=== PATIENT | male | born 1985 | race Caucasian/White ===

== ENCOUNTER 2020-10-10 18:38 | Emergency (ER) | payer SELFPAY ==
[~2020-10-10] VITALS: Ht 180.3 cm; Wt 70.4 kg
[2020-10-10 19:50] VITALS: BP 140/63
[2020-10-10] MEDS ORDERED: IBUP-1060 PO (20:21)
[2020-10-10] MEDS ORDERED: PENI500T PO (20:21)
--- NOTE | 2020-10-10 20:21 | PHYS DOC ---
General Adult EDM: Chief Complaint: SORE THROAT HPI: HPI: Patient is a 35 year old male patient presents with right-sided jaw pain. States that he had some dental work done approximately 3 to 4 weeks ago, since that time he had some discomfort continuing to his right posterior jaw. States the place where his pain hurts most is right behind where his last extraction was. States he had followed up with the dentist, had some x-ray done, and was told that there was nothing wrong. However with his discomfort continued he came here because he did not know what else to do. States pain has gotten worse, states he has not noticed any bad taste in his mouth, not noticed any purulence, has not had any loss of taste. States he is able to open and close his jaw as normal, denies any clicking with opening or closing jaw. Denies sore throat. Denies change in voice. States discomfort is only in his right posterior jaw. States he does however spread to the left side at night. He has tried some Tylenol ibuprofen this, however it has not helped significantly. (SARA FLEMING APRN) Review of Systems: Review of Systems: Constitutional: Denies fever or chills. [] Eyes: Denies change in visual acuity. [] HENT: Denies nasal congestion or sore throat. Reports right jaw pain, reports recent dental work denies change in taste, denies lack of mobility and jaw [] Respiratory: Denies cough or shortness of breath. [] Cardiovascular: Denies chest pain or edema. [] GI: Denies abdominal pain, nausea, vomiting, bloody stools or diarrhea. [] : Denies dysuria. [] Musculoskeletal: Denies back pain or joint pain. [] Integument: Denies rash. [] Neurologic: Denies headache, focal weakness or sensory changes. [] Endocrine: Denies polyuria or polydipsia. [] Lymphatic: Denies swollen glands. [] Psychiatric: Denies depression or anxiety. [] (SARA FLEMING APRN) Heart Score: Risk Factors: Risk Factors: DM, Current or recent (<one month) smoker, HTN, HLP, family hi story of CAD, obesity. Risk Scores: Score 0 - 3: 2.5% MACE over next 6 weeks - Discharge Home Score 4 - 6: 20.3% MACE over next 6 weeks - Admit for Clinical Observation Score 7 - 10: 72.7% MACE over next 6 weeks - Early Invasive Strategies (SARA FLEMING APRN) Allergies: Allergies: Allergies Coded Allergies Type Severity Reaction Last Updated Verified No Known Drug Allergies 10/10/20 No (SARA FLEMING APRN) Physical Exam: PE: Constitutional: Well developed, well nourished, no acute distress, non-toxic appearance. [] HENT: Normocephalic, atraumatic, bilateral external ears normal, oropharynx moist, no oral exudates, nose normal. Tonsils 0+. Patient noted to be missing teeth 29 3031. Tooth #32 appears dark, loose, discolored, with some tenderness on manipulation. No tenderness on palpation of gums, no swelling noted, no abscess noted inside oropharynx. Jaw mobile, without click. [] Neck: Normal range of motion, no tenderness, supple, no stridor. [] Cardiovascular:Heart rate regular rhythm, no murmur [] Lungs & Thorax: Bilateral breath sounds clear to auscultation [] Skin: Warm, dry, no erythema, no rash. [] Extremities: No tenderness, no cyanosis, no clubbing, ROM intact, no edema. [] Neurologic: Alert and oriented X 3, normal motor function, normal sensory function, no focal deficits noted. [] Psychologic: Affect normal, judgement normal, mood normal. [] (SARA FLEMING APRN) EKG: EKG: [] (SARA FLEMING APRN) Radiology/Procedures: Radiology/Procedures: [] (SARA FLEMING APRN) Course & Med Decision Making: Course & Med Decision Making Pertinent Labs and Imaging studies reviewed. (See chart for details) [] Reviewed findings with patient, with concern for developing dental abscess to posterior molar, near site where his dental extraction was recently. Cannot rule out this being a dry socket with discomfort, however patient has followed up with dentist and has had no findings as such with him. Will provide patient short course of antibiotics with recommendation to continue following up with dentist. Will provide patient with prescription for ibuprofen to limit his risk for taking too much ibuprofen as he had previously. Patient no further questions or concerns, and agree with this plan of care (SARA FLEMING APRN) Course & Med Decision Making I have reviewed the PA/[employer] GRINDER's note and Plan of Care. I was available for consultation as needed during the patient's visit in the emergency department. I agree with the clinical impression, plans and disposition. (VANESSA ESPINOSA MD) Ross Disclaimer: Ross Disclaimer: This electronic medical record was generated, in whole or in part, using a voice recognition dictation system. (SARA FLEMING APRN) Departure Departure Impression: Primary Impression: Dentalgia Additional Impression: Jaw pain, non-TMJ Disposition: HOME SELF CARE/HOMELESS Condition: GOOD Referrals: NO PCP (PCP) Patient Instructions: Dental Abscess, Dental Extraction, Care After Additional Instructions: As discussed, take the ibuprofen as prescribed. Take the antibiotics as prescribed follow-up with your primary care provider or your dentist in the next week to determine if you have any improvement in your symptoms and to reevaluate your symptoms Scripts Ibuprofen (IBUPROFEN) 800 Mg Tablet 800 MG PO PRN Q8HRS PRN for PAIN for 5 Days, #15 TAB Prov: SARA FLEMING APRN 10/10/20 Penicillin V Potassium (PENICILLIN V POTASSIUM) 500 Mg Tablet 500 MG PO TID for 7 Days, #21 TAB 0 Refills Prov: SARA FLEMING APRN 10/10/20 SARA FLEMING APRN Oct 10, 2020 20:21 VANESSA ESPINOSA MD Oct 11, 2020 01:21
[2020-10-10] MEDS ORDERED: PENICILLIN V K 250 MG TABLET. PO ONE (20:45)
[2020-10-11] MEDS ORDERED: HYDR-3164 PO (01:15)
== END 2020-10-10 20:35 | disposition home or self-care (01) ==
LOC: ER 18:38
DX: K08.89 Other specified disorders of teeth and supporting structures (principal); R68.84 Jaw pain
CPT/HCPCS: 99283

== ENCOUNTER 2020-10-11 00:39 | Emergency (ER) | payer SELFPAY ==
[~2020-10-11] VITALS: Ht 165.1 cm; Wt 70.4 kg
[~2020-10-11 00:39] MED LIST: IBUP-1060 PO; PENI500T PO
[2020-10-11 01:00] VITALS: BP 166/73
[2020-10-11] MEDS ORDERED: HYDR-3164 PO (01:15)
--- NOTE | 2020-10-11 01:15 | PHYS DOC ---
Past Medical History Past Medical History: Other Additional Past Medical Histor: DENTAL Past Surgical History: No Surgical History Smoking Status: Current Every Day Smoker Alcohol Use: Rarely General Adult EDM: Chief Complaint: DENTAL PROBLEM HPI: HPI: Patient is a 35 year old male who arrives with a chief complaint of 10 out of 10 right-sided jaw pain. Patient had dental extraction a few weeks ago and the pain has been there since then but progressively worse over the last 24 hours. Patient seen his dentist in follow-up who states nothing is wrong. Patient denies any fever. Patient states pain is worse with palpation and with eating. Patient denies any other complaints. Patient was seen here earlier today and put on antibiotics. Patient states the pain is unrelenting and that is why he returned. Review of Systems: Review of Systems: Constitutional: Denies fever or chills. [] Eyes: Denies change in visual acuity. [] HENT: Denies nasal congestion or sore throat. [] Patient complains of right- sided jaw pain Respiratory: Denies cough or shortness of breath. [] Cardiovascular: Denies chest pain or edema. [] GI: Denies abdominal pain, nausea, vomiting, bloody stools or diarrhea. [] : Denies dysuria. [] Musculoskeletal: Denies back pain or joint pain. [] Integument: Denies rash. [] Neurologic: Denies headache, focal weakness or sensory changes. [] Endocrine: Denies polyuria or polydipsia. [] Lymphatic: Denies swollen glands. [] Psychiatric: Denies depression or anxiety. [] Heart Score: Risk Factors: Risk Factors: DM, Current or recent (<one month) smoker, HTN, HLP, family history of CAD, obesity. Risk Scores: Score 0 - 3: 2.5% MACE over next 6 weeks - Discharge Home Score 4 - 6: 20.3% MACE over next 6 weeks - Admit for Clinical Observation Score 7 - 10: 72.7% MACE over next 6 weeks - Early Invasive Strategies Allergies: Allergies: Allergies Coded Allergies Type Severity Reaction Last Updated Verified No Known Drug Allergies 10/10/20 No Physical Exam: PE: Constitutional: Well developed, well nourished, appears to be in pain, non-toxic appearance. [] HENT: Normocephalic, atraumatic, bilateral external ears normal, oropharynx moist, no oral exudates, nose normal. [] Floor the mouth is soft there is no evidence of Maurice angina. There is mild swelling along the right maxillary molar area. No obvious dry socket. Eyes: PERRLA, EOMI, conjunctiva normal, no discharge. [] Neck: Normal range of motion, no tenderness, supple, no stridor. [] Shotty lymphadenopathy Cardiovascular:Heart rate regular rhythm, no murmur [] Lungs & Thorax: Bilateral breath sounds clear to auscultation [] Abdomen: Bowel sounds normal, soft, no tenderness, no masses, no pulsatile masses. [] Skin: Warm, dry, no erythema, no rash. [] Back: No tenderness, no CVA tenderness. [] Extremities: No tenderness, no cyanosis, no clubbing, ROM intact, no edema. [] Neurologic: Alert and oriented X 3, normal motor function, normal sensory function, no focal deficits noted. [] Psychologic: Affect normal, judgement normal, mood normal. [] EKG: EKG: [] Radiology/Procedures: Radiology/Procedures: [] Course & Med Decision Making: Course & Med Decision Making Pertinent Labs and Imaging studies reviewed. (See chart for details) [] 35-year-old male presents with dental pain following a dental extraction. There is no drainable abscess. Patient started on antibiotics. Patient will give some strong pain and then need to follow-up with his dentist. Ross Disclaimer: Ross Disclaimer: This electronic medical record was generated, in whole or in part, using a voice recognition dictation system. Departure Departure Impression: Primary Impression: Pain, dental Additional Impression: Oral pain Disposition: 01 DC HOME SELF CARE/HOMELESS Condition: STABLE Referrals: NO PCP (PCP) [facility] [address] [place], [place] [phone] (kids only) [facility] [address], [place] [phone] (kids onl Patient Instructions: Dental Pain Additional Instructions: EMERGENCY DEPARTMENT GENERAL DISCHARGE INSTRUCTIONS THANK YOU for coming to [facility] Emergency Department (ED) today and trusting us with your care. We trust that you had a positive experience in our Emergency Department. If you wish to speak to the department Management you can contact the liquor department manager at . YOUR FOLLOW UP INSTRUCTIONS ARE FOLLOWS: Do you have a private doctor? If you do not have a private doctor, please ask for a resource list of physicians or clinics that may be able to assist you with follow up care. The Emergency Physician has interpreted your x-rays. The X-ray specialist will also review them. If there is a change in the findings you will be notified in 48 hours when at all possible. A lab test or lab culture may have been done, your results will be reviewed and you will be notified if you need a change in treatment. ADDITIONAL INSTRUCTIONS AND INFORMATION Your care today has been supervised by a physician who is specially trained in emergency care. Many problems require more than one evaluation for a complete diagnosis and treatment. We recommend that you schedule your follow up appointment as recommended to ensure complete treatment of your illness or injury. If you are unable to obtain follow up care and continue to have a problem, or if your condition worsens we recommend that you return to the ED. We are not able to safely determine your condition over the phone nor are we able to give sound medical advice over the phone. For these safety reasons, if you call for medical advice we will ask you to come to the ED for further evaluation If you have any questions regarding these discharge instructions please call the ED at . SAFETY INFORMATION In the interest of safety, wellness, and injury prevention; we encourage you to wear your seatbelt, if you smoke; quit smoking, and we encourage your family to use protective helmet for bicycling and other sporting events that present an increased risk for head injury. IF YOUR SYMPTOMS WORSEN OR NEW SYMPTOMS DEVELOP, OR YOU HAVE CONCERNS ABOUT YOUR CONDITION; OR IF YOUR CONDITION WORSENS WHILE YOU ARE WAITING FOR YOUR FOLLOW UP APPOINTMENT; EITHER CONTACT YOUR PRIMARY CARE DOCTOR, THE PHYSICIAN WHOSE NAME AND NUMBER YOU WERE GIVEN, OR RETURN TO THE ED IMMEDIATELY. Scripts Hydrocodone/Apap 5-325 (NORCO 5-325 TABLET) 1 Each Tablet 1-2 EACH PO PRN Q6HRS PRN for PAIN, #15 as needed for pain Prov: VANESSA ESPINOSA MD 10/11/20 VANESSA ESPINOSA MD Oct 11, 2020 01:15
[2020-10-11] MEDS: HYDROmorphone 2 MG/ML VIAL IM ONE (01:21)
== END 2020-10-11 01:25 | disposition home or self-care (01) ==
LOC: ER 00:39
DX: K08.89 Other specified disorders of teeth and supporting structures (principal); R68.84 Jaw pain; K13.79 Other lesions of oral mucosa; F17.200 Nicotine dependence, unspecified, uncomplicated
CPT/HCPCS: 96372; 99283; J1170

== ENCOUNTER 2021-08-08 20:02 | Emergency (ER) | payer SELFPAY ==
[~2021-08-08] VITALS: Ht 180.3 cm; Wt 68.0 kg
[~2021-08-08 20:02] MED LIST changes: +HYDR-3164 PO
[2021-08-08] MEDS ORDERED: oxyCODONE IR 5 MG TABLET PO ONE (21:00)
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
[2021-08-08 21:36] VITALS: BP 142/82
== END 2021-08-08 21:50 | disposition home or self-care (01) ==
LOC: ER 20:02
DX: S00.33XA Contusion of nose, initial encounter (principal); F17.200 Nicotine dependence, unspecified, uncomplicated; Y08.89XA Assault by other specified means, initial encounter; Y93.89 Activity, other specified; Y92.89 Other specified places as the place of occurrence of the external cause; Y99.8 Other external cause status
CPT/HCPCS: 99283

== ENCOUNTER 2021-10-29 10:44 | Emergency (ER) | payer SELFPAY ==
[~2021-10-29] VITALS: Ht 180.3 cm; Wt 64.5 kg
--- NOTE | 2021-10-29 13:57 | PHYS DOC ---
Past Medical History Past Medical History: Other Additional Past Medical Histor: DENTAL Past Surgical History: Other Additional Past Surgical Histo: FACIAL RECONSTRUCTION JUL 2021 Smoking Status: Current Every Day Smoker Alcohol Use: Rarely General Adult EDM: Chief Complaint: Congestion HPI: HPI: Patient is a 36-year-old male that presents today because he needs a Covid test. 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 Patient denies chest pain, shortness of air, body aches, or fever or chills. Patient does smoke Review of Systems: Review of Systems: Constitutional: Denies fever or chills. [] Eyes: Denies change in visual acuity. [] HENT: nasal congestion; denies sore throat. [] Respiratory: cough; Denies shortness of breath. [] Cardiovascular: Denies chest pain or edema. [] GI: Denies abdominal pain, nausea, vomiting, bloody stools or diarrhea. [] : Denies dysuria. [] Musculoskeletal: Denies back pain or joint pain. [] Integument: Denies rash. [] Neurologic: Denies headache, focal weakness or sensory changes. [] Endocrine: Denies polyuria or polydipsia. [] Lymphatic: Denies swollen glands. [] Psychiatric: Denies depression or anxiety. [] Heart Score: C/O Chest Pain: N/A Risk Factors: Risk Factors: DM, Current or recent (<one month) smoker, HTN, HLP, family history of CAD, obesity. Risk Scores: Score 0 - 3: 2.5% MACE over next 6 weeks - Discharge Home Score 4 - 6: 20.3% MACE over next 6 weeks - Admit for Clinical Observation Score 7 - 10: 72.7% MACE over next 6 weeks - Early Invasive Strategies Allergies: Allergies: Allergies Coded Allergies Type Severity Reaction Last Updated Verified No Known Drug Allergies 10/10/20 No Physical Exam: PE: Constitutional: Well developed, well nourished, no acute distress, non-toxic appearance. [] HENT: Normocephalic, atraumatic, bilateral external ears normal, oropharynx moist, no oral exudates, nose normal. [] Eyes: PERRLA, EOMI, conjunctiva normal, no discharge. [] Neck: Normal range of motion, no tenderness, supple, no stridor. [] Cardiovascular:Heart rate regular rhythm, no murmur [] Lungs & Thorax: Bilateral breath sounds clear to auscultation [] Abdomen: Bowel sounds normal, soft, no tenderness, no masses, no pulsatile masses. [] Skin: Warm, dry, no erythema, no rash. [] Back: No tenderness, no CVA tenderness. [] Extremities: No tenderness, no cyanosis, no clubbing, ROM intact, no edema. [] Neurologic: Alert and oriented X 3, normal motor function, normal sensory function, no focal deficits noted. [] Psychologic: Affect normal, judgement normal, mood normal. [] Current Patient Data: Labs: Laboratory Tests Test 10/29/21 13:59 SARS-CoV-2 Antigen (Rapid) Positive Vital Signs: Vital Signs Date Time Temp Pulse Resp B/P (MAP) Pulse Ox O2 Delivery O2 Flow Rate FiO2 10/29/21 14:36 58 16 125/82 (96) 98 Room Air 10/29/21 13:25 98.4 77 16 129/84 (99) 100 Room Air 98.4 EKG: EKG: [] Radiology/Procedures: Radiology/Procedures: [] Course & Med Decision Making: Course & Med Decision Making Pertinent Labs and Imaging studies reviewed. (See chart for details) Received call from lab patient is positive for COVID-19. We will give patient quarantine instructions starting from the first day of his symptoms. [place] Disclaimer: [place] Disclaimer: This electronic medical record was generated, in whole or in part, using a voice recognition dictation system. Departure Departure Impression: Primary Impression: COVID-19 Disposition: 01 HOME / SELF CARE / HOMELESS Condition: STABLE Referrals: NO PCP (PCP) Additional Instructions: You have been tested for or diagnosed with COVID-19. It is an infection caused by a new type of coronavirus. COVID-19 will cause cold-like or mild flu symptoms in most. It can cause more severe symptoms like problems breathing in some. There is no treatment for COVID-19. The body will clear the infection over time. Self-care will help to ease discomfort. Steps to Take: Self-Care Rest as needed. Healthy habits may help you feel better. Steps include: Choose healthy foods including fruits and vegetables. Drink water throughout the day. Get plenty of sleep each night. If you smoke, try to quit. It may ease breathing. Avoid alcohol. Keep Others Healthy The virus can spread to others. Droplets are released every time you sneeze or cough. The droplets can get into the mouth, nose, or eyes of people near you and lead to infection. To lower the chances of spreading COVID-19 to others: Stay at home until your doctor has said it is safe to leave. If you tested positive this will mean staying isolated until both of the following are true: At least 14 days have passed since the start of illness. You are free of fever for at least 72 hours without the use of medicine. During this time: - Avoid public areas, events, or transportation. Do not return to work or school until your doctor has said it is safe to do so. - Call ahead if you need to go to a medical center. Let them know you may have COVID-19. It will help them guide you where to go. They may also ask you to wear a facemask when you come to the office. - If you call for emergency medical services, let them know you may have COVID- 19. While at home: - Try to avoid close contact with others. Stay about 6 feet away. - If possible, spend most of your time in a separate room from others. - Use a face mask if you will be in close contact with others such as sharing a room or vehicle. - Have someone wipe down common surfaces in the home. Use household apparel patternmaker every day on areas like doorknobs, counters, or sinks. - Cough or sneeze into a tissue. Throw the tissue away right after use. If a tissue is not available, cough or sneeze into your elbow. - Wash your hands often. Wash them after sneezing or coughing. Use soap and water and wash for at least 20 seconds. Alcohol based hand grounds cleaner can be used if soap and water is not available. - Do not prepare food for others. Avoid sharing personal items like forks, spoons, or toothbrushes. - Avoid close contact with pets while you are sick. There is no evidence of the virus passing to pets. This is a safety step until more is known about this virus. Isolation can be frustrating. Social interaction can help. Keep in touch with friends and family through phone and tech options. You can still interact with others in your home, just keep a safe distance of about 6 feet. Follow-up: Your doctors office will check in with you to see if there are any changes in your health. You may be asked to keep track of symptoms to share with them. They will also let you know when you are clear to be in public again. Problems to Look Out For: Contact your doctor if your recovery is not going as you expect. Get emergency care if you have problems such as: - Trouble breathing - Nonstop chest pain or pressure - Changes in awareness, confusion, or problems waking - Lips or face have bluish color - Worsening of symptoms If you think you have an emergency, call for emergency medical services right away. As taken from [facility] LIZETH OBANDO APRN Oct 29, 2021 13:57
[2021-10-29 14:36] VITALS: BP 125/82
== END 2021-10-29 14:36 | disposition home or self-care (01) ==
LOC: ER 10:44
DX: U07.1 COVID-19 (principal); F17.200 Nicotine dependence, unspecified, uncomplicated
CPT/HCPCS: 87426; 99283

== ENCOUNTER 2021-11-16 21:45 | Emergency (ER) | payer SELFPAY ==
[~2021-11-16] VITALS: Ht 177.8 cm; Wt 77.3 kg
--- NOTE | 2021-11-16 22:39 | PHYS DOC ---
Past Medical History Past Medical History: Other Additional Past Medical Histor: DENTAL Past Surgical History: Other Additional Past Surgical Histo: left facial reconstructive surgery 07/2021 Smoking Status: Never Smoker Alcohol Use: None General Adult EDM: Chief Complaint: CHEMICAL EXPOSURE HPI: HPI: Patient is a 36 year old male who presents with concerns of a lead exposure. Patient has been melting lead tire weights into fishing line weights. He does this approximately once a month. He does not have enclosed house without any mask or respirator. He was talking to a friend who advised him to come to the emergency department due to potential lead exposure. He denies any symptoms including numbness, tingling, headaches, seizure. States he has been in his normal state of health. Review of Systems: Review of Systems: Constitutional: Denies fever or chills. [] HENT: Denies nasal congestion or sore throat. [] Respiratory: Denies cough or shortness of breath. [] Neurologic: Denies headache, focal weakness or sensory changes. [] Heart Score: C/O Chest Pain: No Risk Factors: Risk Factors: DM, Current or recent (<one month) smoker, HTN, HLP, family history of CAD, obesity. Risk Scores: Score 0 - 3: 2.5% MACE over next 6 weeks - Discharge Home Score 4 - 6: 20.3% MACE over next 6 weeks - Admit for Clinical Observation Score 7 - 10: 72.7% MACE over next 6 weeks - Early Invasive Strategies Allergies: Allergies: Allergies Coded Allergies Type Severity Reaction Last Updated Verified No Known Drug Allergies 10/29/21 No Physical Exam: PE: Constitutional: no acute distress, non-toxic appearance. [] HENT: Normocephalic, atraumatic Lungs & Thorax: Normal work of breathing Abdomen: Bowel sounds normal, soft, no tenderness, no masses, no pulsatile masses. [] Neurologic: Alert and oriented X 3, normal motor function, normal sensory function, no focal deficits noted. [] Psychologic: Affect normal, judgement normal, mood normal. [] Current Patient Data: Vital Signs: Vital Signs Date Time Temp Pulse Resp B/P (MAP) Pulse Ox O2 Delivery O2 Flow Rate FiO2 11/16/21 22:13 98.6 16 16 143/83 (103) 98 Room Air 98.6 EKG: EKG: [] Radiology/Procedures: Radiology/Procedures: [] Course & Med Decision Making: Course & Med Decision Making Pertinent Labs and Imaging studies reviewed. (See chart for details) Patient is a 36-year-old male who presents with concern of lead exposure as outlined in HPI. He is asymptomatic with normal neuro gross neurologic exam and vital signs. Discussed with poison center who recommends a lead level. Spoke with Bear at the poison center, who states that they will follow-up on the lead lab and follow-up with the patient regarding next steps. Lab states turnaround on lab level is suspected to be 3-4 days as it is a send out. I counseled the patient on stopping these practices, and that if he continues to do them he should do it in a well ventilated area with a respirator for protection against inhalation. Dragon Disclaimer: Dragon Disclaimer: This electronic medical record was generated, in whole or in part, using a voice recognition dictation system. Departure Departure Impression: Primary Impression: Lead exposure Disposition: HOME / SELF CARE / HOMELESS Condition: STABLE Referrals: NO PCP (PCP) Patient Instructions: Lead, Blood Lead Test Additional Instructions: The poison center will follow up with you when the lead result is available. If you have questions for them their number is . NELSON CALIX MD Nov 16, 2021 22:39
[2021-11-16 22:55] VITALS: BP 113/75
== END 2021-11-16 23:00 | disposition home or self-care (01) ==
LOC: ER 21:45
DX: Z77.011 Contact with and (suspected) exposure to lead (principal)
CPT/HCPCS: 36415; 83655; 99283

== ENCOUNTER 2022-01-20 19:49 | Emergency (ER) | payer SELFPAY ==
[~2022-01-20] VITALS: Ht 180.3 cm; Wt 65.0 kg
[2022-01-20 21:35] VITALS: BP 142/88
[2022-01-20] MEDS: AMOXICILLIN 250 MG CAPSULE. PO ONE (21:54)
[2022-01-20] MEDS ORDERED: AMOX500T PO (22:07)
[2022-01-20] MEDS ORDERED: HYDR-2763 PO (22:07)
--- NOTE | 2022-01-20 22:09 | PHYS DOC ---
Past Medical History Past Medical History: Other Additional Past Medical Histor: Hypo CA+ Past Surgical History: Other Additional Past Surgical Histo: reconstruction surgery to face Smoking Status: Never Smoker Alcohol Use: None General Adult EDM: Chief Complaint: DENTAL PROBLEM HPI: HPI: Patient is a 36 year old male who presents to the ED today complaining of a sharp 8 out of 10 left lower gum dental pain. Symptoms have been going on for months but got worse today. He states he has a broken tooth that will be pulled out in 2 weeks. Denies any fever or trismus. States the pain is worse when eating. Reports taking hydrocodone with minimal relief. Review of Systems: Review of Systems: Constitutional: Denies fever or chills. [] HENT: Reports dental pain denies nasal congestion or sore throat. [] Musculoskeletal: Denies back pain or joint pain. [] Integument: Denies rash. [] Neurologic: Denies headache, focal weakness or sensory changes. [] Psychiatric: Denies depression or anxiety. [] Heart Score: C/O Chest Pain: N/A Risk Factors: Risk Factors: DM, Current or recent (<one month) smoker, HTN, HLP, family history of CAD, obesity. Risk Scores: Score 0 - 3: 2.5% MACE over next 6 weeks - Discharge Home Score 4 - 6: 20.3% MACE over next 6 weeks - Admit for Clinical Observation Score 7 - 10: 72.7% MACE over next 6 weeks - Early Invasive Strategies Current Medications: Current Medications Medications (Trade) Dose Ordered Sig/Shant Start Time Stop Time Status Last Admin Dose Admin Amoxicillin (Amoxil) 500 mg 1X ONCE 01/20/22 21:45 01/20/22 21:47 DC 01/20/22 21:54 500 MG Allergies: Allergies: Allergies Coded Allergies Type Severity Reaction Last Updated Verified No Known Drug Allergies 01/20/22 No Physical Exam: PE: Constitutional: Well developed, well nourished, no acute distress, non-toxic appearance. [] HENT: Normocephalic, atraumatic, bilateral external ears normal, oropharynx moist, no oral exudates, nose normal. [] Patient is missing multiple teeth, approximately tooth #21 is broken and decayed. Poor dentition. No gum erythema noted, no dental abscess Skin: Warm, dry, no erythema, no rash. [] Back: No tenderness, no CVA tenderness. [] Extremities: No tenderness, no cyanosis, no clubbing, ROM intact, no edema. [] Neurologic: Alert and oriented X 3, normal motor function, normal sensory function, no focal deficits noted. [] Psychologic: Affect normal, judgement normal, mood normal. [] Current Patient Data: Vital Signs: Vital Signs Date Time Temp Pulse Resp B/P (MAP) Pulse Ox O2 Delivery O2 Flow Rate FiO2 01/20/22 21:35 98.8 70 18 142/88 (106) 98 Room Air 98.8 EKG: EKG: [] Radiology/Procedures: Radiology/Procedures: [] Course & Med Decision Making: Course & Med Decision Making Pertinent Labs and Imaging studies reviewed. (See chart for details) This a 36-year-old male patient with dental infection. Discharged with amoxicillin. He states he has an appointment with [facility] in 2 weeks to remove the tooth Dragon Disclaimer: Ross Disclaimer: This electronic medical record was generated, in whole or in part, using a voice recognition dictation system. Departure Departure Impression: Primary Impression: Dentalgia Additional Impression: Dental infection Disposition: HOME / SELF CARE / HOMELESS Condition: STABLE Referrals: NO PCP (PCP) [facility] Patient Instructions: Dental Pain, [id number] Additional Instructions: You have dental infection. Take the prescribed antibiotics until completed. Follow-up in 2 weeks with [facility] and have the tooth removed Scripts Hydrocodone/Acetaminophen (Hydrocodone-Acetamin 7.5-325) 1 Each Tablet 1 EACH PO Q6-8HRS PRN for PAIN, #10 TAB Prov: AMY HAWTHORNE PROGRAM MANAGEMENT MANAGER 01/20/22 Amoxicillin (AMOXICILLIN) 500 Mg Tablet 1 TAB PO BID, #20 TAB Prov: AMY HAWTHORNE PROGRAM MANAGEMENT MANAGER 01/20/22 AMY HAWTHORNE PROGRAM MANAGEMENT MANAGER Jan 20, 2022 22:09
== END 2022-01-20 21:26 | disposition home or self-care (01) ==
LOC: ER 19:49
DX: K04.7 Periapical abscess without sinus (principal)
CPT/HCPCS: 99283